=== PATIENT | male | born 1975 | race Caucasian/White ===

== ENCOUNTER 2023-10-28 09:48 | Emergency (ER) | payer OTHER, SELFPAY ==
--- NOTE | 2023-10-28 09:56 | ED.GENMED ---
History of Present Illness
General
Chief Complaint: Fatigue
Source: patient and police
Exam Limitations: none
Time Seen by Provider: 10/28/23 09:48
Nursing documentation reviewed up to this point in time: agreed with
Travel History
Have you had any contact with someone who has COVID-19?: No
Do you have any symptoms of coronavirus? Fever > 100 degrees, chills, cough, shortness of breath, sore throat, loss of taste or smell, muscle aches, or headache?: No
History of Present Illness
History of Present Illness:
48-year-old male with a past medical history of esophageal cancer status post tracheostomy, hypertension, anxiety, history of polysubstance use who presents to the emergency department in police custody for medical clearance prior to incarceration.
Patient was arrested; apparently penitentiary was concerned about their ability to care for him given that he has a chronic tracheostomy and so he was sent to the emergency room for evaluation and medical clearance. Patient says that he was diagnosed
with stage IV esophageal cancer about a year and a half ago at [facility] in [place]. He says that he follows with Dr. Paris there. He says that he has been receiving chemoradiation. He previously had a PEG tube but says that
this was removed and he actually is able to take food and drink by mouth. He denies any complaints today�denies any chest pain, abdominal pain, back pain, headache, shortness of breath, fever, chills or any other complaints today on review of
systems.
Review of Systems
Review of Systems
All Other Systems: ROS reviewed and negative except as documented in HPI and ROS
Constitutional: Denies fever
Respiratory: Denies trouble breathing
Cardiac: Denies chest pain
ABD/GI: Denies abdominal pain, nausea or vomiting
: Denies flank pain
Musculoskeletal: Denies neck pain or back pain
Neurological: Denies headache
Phy Exam
Physical Exam
Physical Exam:
General: Awake, alert, oriented x3; no acute distress
Head: Normocephalic, atraumatic
Eyes: Conjunctiva normal, EOMI
Throat: Airway intact, handling secretions
Neck: Trachea midline, tracheostomy in place
Lungs: Clear to auscultation bilaterally, no wheezing, rales, rhonchi
Heart: Regular rate and rhythm, no murmurs, gallops, or rubs; right chest wall chemotherapy port
Abd: Soft, non distended, nontender, scar in the epigastric region from prior PEG tube
Neuro: Cranial nerves grossly intact, speech fluid
Skin: Track rosado/scarring on extremities from prior drug use
Extremities: No edema in extremities, warm well-perfused
Scores
Heart Failure Risk
Heart Failure Risk Score: Not Applicable
Heart Score for Chest Pain Patients
STEMI patient?: Not applicable
Withdrawal Assessment of Alcohol
Withdrawal Assessment Completed?: Not applicable
Course
Orders/Labs/Results
Orders:
Orders
10/28/23 09:54
Electrocardiogram (*1) Urgent
Reason for Study: QTc Monitoring
10/28/23 09:55
Drug Screen, Urine [Urine Drug Abuse Screen] Urgent
10/28/23 10:13
SPEAKING VALVE [RESP] Routine
Use of speaking valve is: New
Respiratory therapy to perform initial evaluation: Yes
Valve may be placed by Respiratory therapist?: Yes
Valve may be placed by Speech therapist?: Yes
Valve may be placed by Patient (with RN assist PRN)?: No
10/28/23 10:15
Alcohol Urgent
COVID-19 Antigen Urgent
Source: Nasal Swab
Complete Blood Count/With Diff Urgent
Comprehensive Metabolic Panel Urgent
Abnormal Lab Results
10/28/23
10:15
WBC 4.2 L 10^3/uL
(4.8-10.8)
RBC 3.71 L 10^6/uL
(4.70-6.10)
Hgb 10.5 L g/dL
(13.0-18.0)
Hct 31.5 L %
(39.0-52.0)
Absolute Lymphs (auto) 0.6 L 10^3/uL
(1.2-3.4)
Lymphocytes % 15.1 L %
(20.5-51.1)
Monocytes % 10.9 H %
(1.7-9.3)
Sodium 131 L mmol/L
(135-145)
Chloride 97 L mmol/L
(98-107)
Creatinine 0.5 L mg/dL
(0.7-1.3)
Glucose 146 H mg/dl
(70-99)
10/28/23 10:15
10/28/23 10:15
Vital Signs
Initial and Last Documented VS:
Initial Vital Signs
Temp Pulse Resp BP Pulse Ox
36.9 C 82 18 133/94 93
10/28/23 09:57 10/28/23 09:57 10/28/23 09:57 10/28/23 09:57 10/28/23 09:57
Last Documented Vital Signs
Temp Pulse Resp BP Pulse Ox
36.9 C 82 18 133/94 93
10/28/23 09:57 10/28/23 09:57 10/28/23 09:57 10/28/23 09:57 10/28/23 09:57
MDM/Problems Addressed
Differential Diagnosis Includes:
Medical screening exam
MDM/Problems Addressed:
48-year-old male with history as documented presents for medical clearance prior to incarceration. He has no acute complaints. His vital signs are normal. Will send screening lab work. He has a chronic tracheostomy appears generally clean and
well cared for although he no longer has speaking valve and has been using a napkin to help to cover trach to facilitate speaking; spoke with respiratory to come to perform dressing change and to provide passy valve.
Labs reviewed: CBC shows very mild anemia no other significant abnormalities, CMP marginal hyponatremia unlikely clinically significant. He has no complaints, no indication for admission at this point in time can have outpatient follow-up for his
mild anemia. We performed tracheostomy care here and he is very well-educated on long-term care for his tracheostomy. In my judgment he is medically cleared at this point for incarceration. Discharged into police custody.
Chronic conditions affecting care:
Esophageal cancer status post tracheostomy
*Pulse Oximetry
Patient hypoxic: no
*Critical Care Note
Total Time (30-74mins, 75-104mins- exclusive of procedures): Not Applicable
Data Reviewed
Source: patient and police
ED Attending Note
-
Portions of this chart may have been created with voice recognition software.� Occasional wrong word or��sound alike� substitutions may have occurred due to the inherent limitations of voice recognition software.
Discharge Plan
Departure
Patient Disposition: Home (Routine Discharge)
Date of Disposition: 10/28/23
Time of Disposition: 12:15
Patient with high blood pressure during this ER visit?: No
Discharge Problem:
Encounter for medical screening examination, Anemia
Instructions: How to Care for a Tracheostomy
Activity Restrictions/Additional Instructions:
PATIENT IS MEDICALLY CLEARED FOR INCARCERATION.
Thank you for visiting the Emergency Department at [facility].
1. Please schedule a follow up appointment as directed. Call first thing tomorrow morning to make an appointment.
2. If indicated, please take your medications as instructed and indicated on discharge paperwork.
3. If any of your symptoms do not improve, or persist, or become more severe within 6-12 hours, please return to the emergency department for further care.
4. Please return to the emergency department if you develop a headache, neck pain/stiffness, fever greater than 100.4F, chest pain, shortness of breath, persistent nausea, vomiting, slurred speech, difficulty walking, numbness/tingling, weakness,
signs of infection or any other symptoms that are worrisome to you.
Please call [phone] if you have any questions.
Discharge Date and Time
Print Language: TOGOLESE
[2023-10-28 09:57] VITALS: BP 133/94
[2023-10-28 09:58] VITALS: BMI 21.4
[2023-10-28 10:44] LABS: % Basophils 0.7 % (0-2); % Immature Granulocytes 0.2 % (0-0.5); % Lymphocytes 15.1 % (20.5-51.1); % Monocytes 10.9 % (1.7-9.3); % Neutrophils 69.1 % (42.2-75.2); Absolute Eosinophils 0.2 10^3/uL (0-0.7); Absolute Lymphocytes 0.6 10^3/uL (1.2-3.4); Absolute Monocytes 0.5 10^3/uL (0.1-0.6); Absolute Neutrophils 2.9 10^3/uL (1.4-6.5); Hematocrit 31.5 % (39.0-52.0); Hemoglobin 10.5 g/dL (13.0-18.0); Mean Corp Hgb Conc. 33.3 g/dL (33.0-37.0); Mean Corpuscular Hgb 28.3 pg (27.0-31.0); Mean Corpuscular Volume 84.9 fL (80.0-94.0); Nucleated Red Blood Cells % 0 % (-); Platelet Count 268 10^3/uL (130-400); Red Blood Cell Count 3.71 10^6/uL (4.70-6.10); Red Cell Dist. Width 13.4 % (11.5-14.5); White Blood Cell Count 4.2 10^3/uL (4.8-10.8)
[2023-10-28 10:49] LABS: COVID-19 Antigen Negative (Negative)
[2023-10-28 10:56] LABS: ALT (SGPT) 15 U/L (0-50); AST (SGOT) 25 U/L (17-59); Alkaline Phosphatase 99 U/L (38-126); Blood Urea Nitrogen 19 mg/dl (9-20); Calcium 9.4 mg/dl (8.4-10.2); Carbon Dioxide 28 mmol/L (22-30); Chloride 97 mmol/L (98-107); Estimated Creatinine Clearance > 125 ml/min; Glucose 146 mg/dl (70-99); Potassium 3.8 mmol/L (3.5-5.1); Sodium 131 mmol/L (135-145); Total Bilirubin 0.6 mg/dl (0.2-1.3); Total Protein 7.6 g/dl (6.3-8.2); eGFR > 60.00
[2023-10-28 10:59] LABS: Alcohol None Detected
== END 2023-10-28 12:31 | disposition home or self-care (01) ==
LOC: EMR 09:48
PROVIDERS: EMERGENCY PHYSICIAN Emergency Medicine
DX: Z02.79 Encounter for issue of other medical certificate (principal); D64.9 Anemia, unspecified; Z11.52 Encounter for screening for COVID-19; I10 Essential (primary) hypertension; F41.9 Anxiety disorder, unspecified; C15.9 Malignant neoplasm of esophagus, unspecified; F19.91 Other psychoactive substance use, unspecified, in remission; Z93.0 Tracheostomy status
CPT/HCPCS: 99283; 80053; 82077; 85025; 87811

== ENCOUNTER 2023-10-28 13:49 | Emergency (ER) | payer OTHER, SELFPAY ==
[2023-10-28 13:59] VITALS: BP 133/76
--- NOTE | 2023-10-28 15:04 | CM ---
CM was consulted regarding patient returning to [facility] due to lack of trach supplies. Patient just medically cleared to return to nursing home. He subsequently was brought back to the ED due to lack of trach supplies at the nursing home. CM updated Raysa Sanchez
and Beulah Ralph with difficulties. Plan to have patient return to nursing home with a batch of trach care supplies to bridge patient until nursing at the nursing home can order supplies.
ED physician and bedside RN made aware.
--- NOTE | 2023-10-28 15:45 | ED.GENMED ---
History of Present Illness
General
Chief Complaint: Social Service Referral
Source: patient, records and police
Exam Limitations: none
Time Seen by Provider: 10/28/23 13:50
Nursing documentation reviewed up to this point in time: agreed with
Travel History
Have you had any contact with someone who has COVID-19?: No
Do you have any symptoms of coronavirus? Fever > 100 degrees, chills, cough, shortness of breath, sore throat, loss of taste or smell, muscle aches, or headache?: No
History of Present Illness
History of Present Illness:
48-year-old male history as above evaluated earlier for medical clearance prior to incarceration. He was brought back because he was once again declined by staff at present due to his chronic medical issues. I called the nursing field pipelines supervisor at the
present (Trinh Bong)�she indicated that they do not have supplies to care for his chronic tracheostomy.
Review of Systems
Review of Systems
All Other Systems: ROS reviewed and negative except as documented in HPI and ROS
Constitutional: Denies fever
Respiratory: Denies trouble breathing
Cardiac: Denies chest pain
ABD/GI: Denies abdominal pain or vomiting
: Denies flank pain
Musculoskeletal: Denies neck pain or back pain
Neurological: Denies headache
Phy Exam
Physical Exam
Physical Exam:
General: Well appearing and non-toxic
HEENT: protecting airway
Neck: Tracheostomy in place
CV: No evidence of cyanosis
Resp: No accessory muscle use
Abd: Non-distended
Extremities: No deformities
Neuro: Alert
Psych: Normal affect
Skin: Intact
Scores
Heart Failure Risk
Heart Failure Risk Score: Not Applicable
Heart Score for Chest Pain Patients
STEMI patient?: Not applicable
Withdrawal Assessment of Alcohol
Withdrawal Assessment Completed?: Not applicable
Course
Vital Signs
Initial and Last Documented VS:
Initial Vital Signs
Temp Pulse Resp BP Pulse Ox
36.7 C 69 16 133/76 98
10/28/23 13:59 10/28/23 13:59 10/28/23 13:59 10/28/23 13:59 10/28/23 13:59
Last Documented Vital Signs
Temp Pulse Resp BP Pulse Ox
36.7 C 69 16 133/76 98
10/28/23 13:59 10/28/23 13:59 10/28/23 13:59 10/28/23 13:59 10/28/23 13:59
MDM/Problems Addressed
Differential Diagnosis Includes:
Medical screening
MDM/Problems Addressed:
48-year-old male returns due to issues managing his tracheostomy at present. Spoke with the nursing survivors at the detention they are lacking in supplies for chronic trach care. We were able to provide supplies for care and coordinated with nursing
staff at present and they can accept patient with these supplies and hand. There is no indication for admission to the medical jason at this point in time. Discharged.
Chronic conditions affecting care:
Cancer with tracheostomy
*Pulse Oximetry
Patient hypoxic: no
*Critical Care Note
Total Time (30-74mins, 75-104mins- exclusive of procedures): Not Applicable
Data Reviewed
Source: patient, records and police
Patient Management
Discussion with other providers: Alf staff
ED Attending Note
-
Portions of this chart may have been created with voice recognition software.� Occasional wrong word or��sound alike� substitutions may have occurred due to the inherent limitations of voice recognition software.
Discharge Plan
Departure
Patient Disposition: Home (Routine Discharge)
Date of Disposition: 10/28/23
Time of Disposition: 15:48
Patient with high blood pressure during this ER visit?: No
Discharge Problem:
Encounter for medical screening examination
Instructions: How to Care for a Tracheostomy
Referrals:
[facility] [Family Provider] -
Activity Restrictions/Additional Instructions:
Thank you for visiting the Emergency Department at [facility].
1. Please schedule a follow up appointment as directed. Call first thing tomorrow morning to make an appointment.
2. If indicated, please take your medications as instructed and indicated on discharge paperwork.
3. If any of your symptoms do not improve, or persist, or become more severe within 6-12 hours, please return to the emergency department for further care.
4. Please return to the emergency department if you develop a headache, neck pain/stiffness, fever greater than 100.4F, chest pain, shortness of breath, persistent nausea, vomiting, slurred speech, difficulty walking, numbness/tingling, weakness,
signs of infection or any other symptoms that are worrisome to you.
Please call [phone] if you have any questions.
Interventions
Interventions:
*Risk Screen - Suicide Last Done: 10/28/23 14:02
*General Assessment Last Done: 10/28/23 13:59
*Neglect/Abuse Screening Last Done: 10/28/23 14:02
ED- Fall Risk Assessment Last Done: 10/28/23 14:02
*ED COVID-19 Vaccine History Last Done: 10/28/23 13:59
ED-Psychological Assessment Last Done: 10/28/23 14:02
Discharge Date and Time
Print Language: MICRONESIAN
--- NOTE | 2023-10-28 16:37 | EDRN ---
Addendum entered by Quyen De La O RN 10/28/23 16:43:
trach care was done in the ER before discharge.
Original Note:
Venkat Rishko Supplies
6.0 Shiley uncuffed
Trach tie/strap
Inner cannula
Unopened pack 4x4
10 non-woven drain sponges
8 saline bullets
2 suction kit 14 FR w/water
2 extra 14 FR suction catheter
Extra passy valve
4 bottles Ensure
The supplies we sent with patient.
nurse [place] accepted the patient and felt comfortable taking care of him.
[2023-10-28 16:45] VITALS: BP 130/70
== END 2023-10-28 16:40 | disposition home or self-care (01) ==
LOC: EMR 13:49
PROVIDERS: EMERGENCY PHYSICIAN Emergency Medicine
DX: Z02.79 Encounter for issue of other medical certificate (principal); C14.0 Malignant neoplasm of pharynx, unspecified; I10 Essential (primary) hypertension; Z93.0 Tracheostomy status
CPT/HCPCS: 99281